=== PATIENT | female | born 1955 | race Caucasian/White ===

== ENCOUNTER → 2019-02-26 | Outpatient (CLI) | payer OTHER ==
[~2019-02-26] MED LIST: ALBU90OI INH; HYDCHL25 PO; LOSA25 PO; METF500C PO; VENLAFAXINE H37.5 MG PO
== END | disposition home or self-care (01) ==
LOC: LAB SHORT 16:30 → LAB 16:30
DX: N39.0 Urinary tract infection, site not specified (principal)
CPT/HCPCS: 87077; 87086; 87186

== ENCOUNTER → 2019-03-21 | Outpatient (CLI) | payer OTHER | END | disposition home or self-care (01) | LOC: PLD 13:30 → LAB SHORT 13:30 | DX: D22.4 Melanocytic nevi of scalp and neck (principal) | CPT/HCPCS: 88305 ==

== ENCOUNTER → 2019-09-26 | Outpatient (CLI) | payer OTHER ==
[2019-09-26 10:36] LABS: Source, Urine Clean Catch
[2019-09-26 10:49] LABS: Bacteria Few /hpf; Red Blood Cells, Urine 0-2 /hpf (0-2); Squamous Epithelial Cells Mod /hpf (Few); Transitional Epithelial Cells Few /hpf (0-Rare)
== END | disposition home or self-care (01) ==
LOC: LAB EV 10:34 → LAB SHORT 10:34
PROVIDERS: Physician Assistant
DX: R94.4 Abnormal results of kidney function studies (principal); R82.79 Other abnormal findings on microbiological examination of urine
CPT/HCPCS: 81015; 87086

== ENCOUNTER → 2019-10-01 | Outpatient (CLI) | payer OTHER | END | disposition home or self-care (01) | LOC: LAB SHORT 16:32 → LAB 16:32 | DX: N39.0 Urinary tract infection, site not specified (principal) | CPT/HCPCS: 87086 ==

== ENCOUNTER → 2019-10-15 | Outpatient (CLI) | payer OTHER | LOC: LAB SHORT 16:24 → LAB EV 16:24 | DX: M79.672 Pain in left foot (principal) | CPT/HCPCS: 84550 ==

== ENCOUNTER → 2020-07-08 | Outpatient (CLI) | payer OTHER ==
[2020-07-10 03:08] LABS: CHLAMYDIA TRACHOMATIS, NAA Negative (Negative); NEISSERIA GONORRHOEAE, NAA Negative (Negative)
== END | disposition home or self-care (01) ==
LOC: LAB 09:44 → LAB SHORT 09:44 → LAB FUT 07-03 08:10
PROVIDERS: Physician Assistant
DX: Z11.3 Encounter for screening for infections with a predominantly sexual mode of transmission (principal)
CPT/HCPCS: 87491; 87591

== ENCOUNTER → 2021-04-17 | Outpatient (CLI) | payer BC, SELFPAY | END | disposition home or self-care (01) | LOC: LAB 12:32 → LAB SHORT 12:32 | DX: N39.0 Urinary tract infection, site not specified (principal) | CPT/HCPCS: 87077; 87086; 87147; 87186 ==

== ENCOUNTER 2021-05-13 09:01 | Emergency (ER) | payer BC, OTHER ==
[~2021-05-13] VITALS: Ht 160 cm; Wt 100.7 kg
== END 2021-05-13 10:27 | disposition home or self-care (01) ==
LOC: ER 09:01
DX: M54.5 Low back pain (principal); G89.29 Other chronic pain; E11.9 Type 2 diabetes mellitus without complications; Z88.5 Allergy status to narcotic agent; Z79.84 Long term (current) use of oral hypoglycemic drugs; Z79.899 Other long term (current) drug therapy
CPT/HCPCS: 99283

== ENCOUNTER → 2022-05-06 | Outpatient (CLI) | payer OTHER | END | disposition home or self-care (01) | LOC: LAB 15:52 → LAB SHORT 15:52 | DX: B37.2 Candidiasis of skin and nail (principal) | CPT/HCPCS: 87070; 87205 ==

== ENCOUNTER 2025-03-03 07:56 | Inpatient (IN) | payer OTHER ==
[~2025-03-03] VITALS: Ht 160 cm; Wt 97.3 kg
[2025-03-03 08:53] LABS: BASOPHILS ABSOLUTE AUTO 0.08 K/mm3 (0.00-0.23); BASOPHILS PERCENT AUTO 1 % (0-2); EOSINOPHILS ABSOLUTE AUTO 0.18 K/mm3 (0.00-0.68); EOSINOPHILS PERCENT AUTO 2 % (0-6); Hematocrit 38.9 % (33.0-51.0); Hemoglobin 13.1 g/dL (11.5-16.0); IMMATURE GRAN ABSOLUTE AUTO 0.02 K/mm3 (0.00-0.10); IMMATURE GRAN PERCENT AUTO 0 % (0-1); LYMPHOCYTES ABSOLUTE AUTO 1.91 K/mm3 (0.84-5.20); LYMPHOCYTES PERCENT AUTO 22 % (21-46); MONOCYTES ABSOLUTE AUTO 0.65 K/mm3 (0.16-1.47); MONOCYTES PERCENT AUTO 7 % (4-13); Mean Corpuscular HGB Conc 33.7 g/dL (31.5-36.5); Mean Corpuscular Volume 95 fL (80-100); Mean Platelet Volume 9.4 fL (9.1-12.4); NEUTROPHILS ABSOLUTE AUTO 5.92 K/mm3 (1.96-9.15); NEUTROPHILS PERCENT AUTO 68 % (41-73); Platelet Count 341 K/mm3 (150-400); RDW Coefficient Variation 12.5 % (11.7-14.2); RDW Standard Deviation 43.7 fL (35.1-46.3); Red Blood Cell Count 4.09 M/mm3 (3.80-5.20); White Blood Cell Count 8.76 K/mm3 (4.00-11.30)
[2025-03-03 09:21] LABS: Albumin, Blood 3.3 g/dL (3.4-5.0); Albumin/Globulin Ratio 0.8 (0.8-1.8); Bilirubin, Total 0.5 mg/dL (0.1-1.0); Bun/Creatinine Ratio 21.5 (12.0-20.0); Calcium, Blood 8.5 mg/dL (8.5-10.1); Creatinine, Blood 0.93 mg/dL (0.40-1.00); Globulin, Blood 4.1 g/dL (2.2-4.0); Potassium, Blood 4.1 mmol/L (3.5-5.5); Total Protein, Blood 7.4 g/dL (6.4-8.2)
[2025-03-03] MEDS ORDERED: VENLAFAXINE HCL75 MG PO (09:33)
[2025-03-03] MEDS ORDERED: LONG ACTING INSULIN (09:34)
[2025-03-03] MEDS ORDERED: GLIMEPIRIDE4 MG PO (09:34)
[2025-03-03] MEDS ORDERED: LOSA50 PO (09:34)
[2025-03-03] MEDS ORDERED: Clopidogrel Bisulfate 75 MG Tab PO ONE ×2 (10:10→10:25)
[2025-03-03] MEDS ORDERED: Aspirin 325 MG Tab PO ONE ×2 (10:10→10:25)
[2025-03-03] MEDS ORDERED: HydrALAZINE HCl 20 MG / ML 1ML Vial IV ONE ×2 (10:25→12:10)
[2025-03-03] MEDS ORDERED: NS 1,000 ML IV SCH ×2 (11:10→19:10)
[2025-03-03] MEDS ORDERED: Aspirin 81 MG Chew PO ONE (11:15)
[2025-03-03 14:09] VITALS: BP 174/73
[2025-03-03] MEDS ORDERED: Ondansetron HCl 2 MG / ML 2ML Vial IV PRN (14:45)
[2025-03-03] MEDS ORDERED: HydrALAZINE HCl 20 MG / ML 1ML Vial IV PRN (14:50)
[2025-03-03 15:40] VITALS: BP 174/78
[2025-03-03 17:27] LABS: Source, Urine Clean Catch
[2025-03-03 17:58] LABS: Appearance, Urine Clear (Clear); Bilirubin, Urine Neg (Neg); Blood, Urine Neg (Neg); Glucose Qualitative, Urine 3+ (Neg); Ketones, Urine Neg (Neg); Leukocyte Esterase, Urine Neg (Neg); Nitrite, Urine Neg (Neg); Protein, Urine 2+ (Neg); Urobilinogen, Urine NORM (Normal); pH, Urine 6.5 (5.0-8.0)
[2025-03-03] MEDS ORDERED: Insulin Human Lispro 100 Units/ML 3ML Syringe SC SCH (18:00)
[2025-03-03 18:20] LABS: Color, Urine Pale Yellow (P-Yellow)
[2025-03-03 18:22] LABS: Bacteria Few /hpf; Red Blood Cells, Urine 0-2 /hpf (0-2); Squamous Epithelial Cells Rare /hpf (Few)
--- NOTE | 2025-03-03 18:31 | NUR ---
SHIFT SUMMARY: PATIENT ADMIT TO PCU 02 THIS AFTERNOON. EMOTIONAL ON ADMIT AND STATING "I JUST WANT TO GO HOME". ABLE TO ANSWER ALL ORIENTING QUESTIONS (NAME, , PLACE, MONTH, YEAR, PRESIDENT) AT TIMES REPETATIVE WITH QUESTIONS AND FORGETFUL. NEEDING REMINDERS OF WHY SHE IS HERE. STAND TO TRANSFER TO BED WITH 2 PERSON ASSIST. UP TO BATHROOM TWICE THIS SHIFT WITH 2 PEOPLE FOR SAFETY. FALL RISK GOWN, SOCKS AND BED ALARM IN PLACE. LEFT SIDE FACIAL DROOP NOTED IN SMILE. LEFT UPPER EXREMITY LIMITED RANGE OF MOTION AND WEAKNESS COMPARED TO RIGHT SIDE. LOSS OF SENSATION TO LEFT UPPER EXTREMITY. PATIENT NOT ABLE TO SEE LEFT VISUAL FIELD. SPEECH CLEAR WITH VERY MINIMAL STUTTER. NPO AT THIS TIME PENDING SPEECH EVAL IN AM. NIH SCORE 7 ON ADMIT. TELE SHOWING SINUS RHYTHM WITH HR 90'S. SBP 170'S. DENIES CHEST PAIN/PRESSURE/PALPITATIONS. NO EDEMA NOTED. SCD'S IN PLACE. SCATTERED BRUISING TO BUE. IV NORMAL SALINE INFUSING PER EMAR. ON ROOM AIR, LUNG SOUNDS CLEAR AND DIM. DENIES SOB/COUGH. EVEN AND UNLABORED RESPIRTATIONS. BOWEL TONES PRESENT IN ALL FOUR QUADRANTS. Q6 BLOOD SUGAR CHECKS. ATTENDS IN PLACE. UP TO BATHROOM TWICE WITH THIS RN AND CHIMNEY SUPERVISOR BRICK. USING HAT TO MEASURE URINE. SMALL SCAB NOTED TO LEFT BUTTOCK AND LEFT TAY, SEE CHART FOR PHOTOS, LEFT OPEN TO AIR. THIS RN PLACED CALL TO HARMEET ARCE, PLAN FOR CLAUDE TO CALL BACK WITH PATIENT MED LIST. CALL LIGHT IN REACH. PATIENT RESTING ON LEFT SIDE AT THIS TIME.
[2025-03-03 20:38] VITALS: BP 167/87
[2025-03-04] VITALS (8 sets, daily range): BP systolic 151–190; BP diastolic 69–106
--- NOTE | 2025-03-04 00:40 | NUR ---
PT REFUSING IV ATTEMPTS, ALLOWED HOUSEKEEPING ROOM INSPECTOR 1X ATTEMPT WITHOUT SUCCESS. BANK NOTE DESIGNER TO ATTEMPT WITH ULTRASOUND.
--- NOTE | 2025-03-04 04:42 | NUR ---
SHIFT SUMMARY NIH 7 THIS SHIFT. PT'S SYSTOLIC WAS 190. DELAY IN TREATING BP DUE PT'S REFUSAL FOR NEW IV. PT'S MOOD IS LABILE, SOMETIMES PARANOID. PT HAD BEADING SWEAT WITHOUT FEVER, AND CBG'S NORMAL. DENIES ETOH USE.
[2025-03-04 05:15] LABS: BASOPHILS ABSOLUTE AUTO 0.06 K/mm3 (0.00-0.23); BASOPHILS PERCENT AUTO 1 % (0-2); EOSINOPHILS PERCENT AUTO 1 % (0-6); Hematocrit 38.9 % (33.0-51.0); Hemoglobin 13.5 g/dL (11.5-16.0); IMMATURE GRAN ABSOLUTE AUTO 0.01 K/mm3 (0.00-0.10); IMMATURE GRAN PERCENT AUTO 0 % (0-1); LYMPHOCYTES ABSOLUTE AUTO 1.74 K/mm3 (0.84-5.20); LYMPHOCYTES PERCENT AUTO 20 % (21-46); MONOCYTES ABSOLUTE AUTO 0.64 K/mm3 (0.16-1.47); MONOCYTES PERCENT AUTO 7 % (4-13); Mean Corpuscular HGB 32.7 pg (26.0-34.0); Mean Corpuscular HGB Conc 34.7 g/dL (31.5-36.5); Mean Corpuscular Volume 94 fL (80-100); Mean Platelet Volume 9.7 fL (9.1-12.4); NEUTROPHILS ABSOLUTE AUTO 6.05 K/mm3 (1.96-9.15); NEUTROPHILS PERCENT AUTO 70 % (41-73); Platelet Count 376 K/mm3 (150-400); RDW Coefficient Variation 12.8 % (11.7-14.2); Red Blood Cell Count 4.13 M/mm3 (3.80-5.20)
[2025-03-04 05:42] LABS: Bun/Creatinine Ratio 17.5 (12.0-20.0); Calcium, Blood 8.9 mg/dL (8.5-10.1); Creatinine, Blood 0.86 mg/dL (0.40-1.00); Potassium, Blood 3.6 mmol/L (3.5-5.5)
--- NOTE | 2025-03-04 08:14 | NUR ---
ASSUMPTION OF CARE: ASSUMED CARE OF PATIENT. AWAKE AND RESTLESS DURING SHIFT CHANGE REPORT. LYING ON BACK AND ROLLING TO RIGHT SIDE IN BED, BACK AND FORTH. REQUESTING DRINKG OF WATER; TOLD WE ARE WAITING FOR ST EVAL D/T DYSPHAGIA. BREATHING EVEN AND UNLABORED. MAINTAINING SPO2 >92% ON RA. TELE SINUS TACH @ 103. NS @ 60mL/hr. OT IMMEDIATELY TO ROOM. BED IN LOWEST POSITION. CALL LIGHT WITHIN REACH. NO ACUTE NEEDS.
[2025-03-04] MEDS ORDERED: Aspirin 81 MG Chew PO SCH (09:00)
[2025-03-04] MEDS ORDERED: Clopidogrel Bisulfate 75 MG Tab PO SCH (09:00)
--- NOTE | 2025-03-04 09:54 | NUR ---
, RIDGE, TO BEDSIDE. PATIENT VERY TEARFUL AND CRYING, STATING SHE WANTS TO GO HOME. THIS RN TO BEDSIDE; LET PATIENT KNOW OF PLAN FOR DAY: NEED FOR ECHO AND TRANSFER TO MEDICAL FLOOR. EXPLAINED PATIENT'S RIGHT TO LEAVE IF SHE WANTS TO AND THAT SHE IS NOT BEING HELD AGAINST HER WILL, BUT THAT DIAGNOSTICS SHOULD BE DONE TO PREVENT FURTHER STROKES AND STROKE-LIKE EPISODES. PT AND FAMILY IN AGREEMENT.
--- NOTE | 2025-03-04 13:58 | NUR ---
CALL TO NOTIFY DR. LOVE THAT PATIENT REPEATEDLY STATING SHE IS WANTING TO GO HOME AND DOESN'T KNOW WHAT SHE IS WAITING FOR. ASKING FOR DR. LOVE, STATING SHE HASN'T SEEN HIM TODAY. DR LOVE ROUNDED ~0900 AND TALKED WITH PATIENT, BUT SHE DOES NOT REMEMBER. PARTICIPATED VERY LITTLE WITH PT/OT TODAY; THEY ARE RECOMMENDING SNF.
[2025-03-04] MEDS ORDERED: Lisinopril 10 MG Tab PO SCH (14:00)
[2025-03-04] MEDS ORDERED: BusPIRone HCl 5 MG Tab PO SCH (14:00)
--- NOTE | 2025-03-04 14:51 | NUR ---
PATIENT HAVING DIFFICULTY FOLLOWING DIRECTION AND MOVING OFTEN DURING VITALS YIELDING INVALID BP OF >200.
[2025-03-04] MEDS ORDERED: VENL75ER PO (15:48)
--- NOTE | 2025-03-04 16:00 | NUR ---
CUSHION MAT MAKER DOCUMENTATION REVIEW: THIS RN HAS PERSONALLY REVIEWED DOCUMENTATION BY STUDENT NURSE. ALL CONTROLLED SUBSTANCES GIVEN BY THIS RN AND OTHER IV PUSHES DIRECTLY OBSERVED BY THIS RN.
--- NOTE | 2025-03-04 17:58 | NUR ---
REVIEW OF PHYSICIAN ER NOTE SHOWS RECOMMENDED MRI OF HEAD. T.O. FOR MRI PLACED.
--- NOTE | 2025-03-04 19:15 | NUR ---
END OF SHIFT SUMMARY: A&Ox3-4. REQUIRES VERBAL CUES AND PROMPTS FOR ADLs; DIFFICULTY FOLLOWING DIRECTION. LUE WEAKNESS, LEFT HAND CONTRACTED. LEFT DEFICIT VISUAL FIELD. CALLS APPROPRIATELY. SPOUSE AT BEDSIDE MUCH OF DAY; PATIENT EMOTIONALLY LABILE AND CRYING TO GO HOME SEVERAL TIMES T/O THE DAY. REMINDED OF TESTING BEING DONE. CONTINENT OF BOWEL AND BLADDER. AMBULATES 1PA c FWW & GB WITH SLIGHT DIFFICULTY c LLE DEXTERITY. SEEN BY SPEECH AND CLEARED FOR PUREE DIET c DYSPHAGIA PRECAUTIONS. NO C/O PAIN. TELE SINUS TACH. DIFFICULTY KEEPING SBP WITHIN GOAL TODAY; PRN HYDRALAZINE ADMINISTERED TWICE. PT RECOMMENDING SNF. BED IN LOWEST POSITION, CALL LIGHT WITHIN REACH, ALL NEEDS MET. REPORT TO ONCOMING NURSE.
[2025-03-04] MEDS ORDERED: Insulin Human Lispro 100 Units/ML 3ML Syringe SC SCH (21:00)
--- NOTE | 2025-03-04 21:48 | NUR ---
UPDATE ASSUMED CARE OF PT AT 1900, PT AWAKE AND ALERT ORIENTED TO PERSON, PLACE AND SITUATION, STATES "I DONT KNOW" WHEN ASKED DATE/TIME AND PRESIDENT, FOLLOWS COMMANDS, NOTED SLURRED SPEECH AT TIMES WITH LEFT SIDE FACIAL DROOP, LEFT ARM FLACCID WITH LEFT HAND CONTRACTURE, LLE WEAK, RIGHT FOREARM PIV PATENT AND CLAMPED, SCHEDULED MED GIVEN PO WHOLE WITH APPLESAUCE, SWALLOWED WITHOUT DIFFICULTY, DENIES C/O PAIN OR NEEDS, SR-ST 90-110s SBP GOAL <180, RESP EVEN AND UNLABORED ON RA, TEMP 99.2F, MRI ORDERED, PT UNABLE TO GIVE ANSWERS TO MRI QUESTIONAIRE, STATES "I DONT KNOW" TO MOST QUESTIONS, CALLED PT SPOUSE RIDGE WITH NO ANSWER AND [id number] GRANDDAUGHTER WITH NO ANSWER TO COMPLETE PAPERWORK. AWAITING RETURN CALL 1 REPORT CALLED TO GENE MATHIAS FOR TRANSFER TO ROOM 347
--- NOTE | 2025-03-04 22:08 | NUR ---
NURSE NOTE THIS NURSE ASSUMES PT CARE. PATIENT DECLINES NEED OF ANYTHING. WANTS TO SLEEP
[2025-03-05] VITALS (9 sets, daily range): BP systolic 151–195; BP diastolic 61–105
--- NOTE | 2025-03-05 05:43 | NUR ---
SHIFT SUMMARY PATIENT IS ALERT AND ORIENTED TO PERSON AND PLACE AND SITUATION. PATIENT HAS HAD NO ACUTE EVENTS THIS SHIFT. VITAL SIGNS REVIEWED. PATIENT IS A RECENT PCU TRANSFER. PATIENT HAS HAD NO COMPLAINTS OF PAIN, NAUSEA, SOB OR VOMITTING. PATIENT HAS HAD HIGH BP THIS SHIFT AND MEDICATED PER EMAR. PATIENT HAS PENDING MRI BUT PATIENT IS A POOR HISTORIAN AND CANNOT ACCURATELY FILL OUT FORM. BED IN LOCKED AND LOWEST POSITION. CALL LIGHT IN PLACE
[2025-03-05] MEDS ORDERED: AmLODIPine Besylate 5 MG Tab PO SCH (09:00)
[2025-03-05] MEDS ORDERED: Metoprolol Succinate 50 MG TABCR PO SCH (14:35)
[2025-03-05] MEDS ORDERED: Losartan Potassium 50 MG Tab PO ONE (18:00)
--- NOTE | 2025-03-05 19:05 | NUR ---
SHIFT SUMMARY PT IS A/OX3, CONFUSION TO DATE/TIME. 2 PERSON ASSIST D/T LEFT SIDED WEAKNESS. DIET ADVANCED TO REGULAR, MEDS WHOLE WITH WATER. BP REMAIN ELEVATED THROUGHOUT THIS SHIFT, PHYSICAN AWARE. AT BEDSIDE THROUGHOUT THIS AFTERNOON.
[2025-03-05] MEDS ORDERED: Atorvastatin 40 MG Tab PO SCH (21:00)
[2025-03-05] MEDS ORDERED: Insulin Glargine-Yfgn 100 Unit/mL 3 ML SYR SC SCH (21:00)
[2025-03-06 01:04] VITALS: BP 164/58
[2025-03-06 03:28] VITALS: BP 179/77
--- NOTE | 2025-03-06 05:12 | NUR ---
SHIFT SUMMARY PATIENT IS ALERT AND ORIENTED X2. PATIENT HAS HAD NO ACUTE EVENTS THIS SHIFT. PATIENT HAS BEEN SLEEPING MOST OF SHIFT. PATIENT HAS BEEN ACCEPTED TO SNF AND [facility] TO GET STRENGTH BACK. PATIENT STILL HAS SIGNIFIGANT LEFT SIDE WEAKNESS. BP ELEVATED THIS SHIFT. PATIENT HAS REPORTED NAUSEA AND MEDICATED PER EMAR. PATIENT HAS HAD NO COMPLAINTS OF PAIN, NAUSEA, SOB OR VOMITTING THIS SHIFT. BED IN LOCKED AND LOWEST POSITION. CALL LIGHT IN PLACE.
[2025-03-06 06:09] LABS: CHOL/HDL RATIO 3.7; Cholesterol 163 mg/dL (50-200); HDL Cholesterol 44 mg/dL (>39); LDL/HDL RATIO 2.1; Low Density Lipoprotein Chol 94 mg/dL (0-110); Triglycerides 126 mg/dL (30-160); Very Low Density Lipoprot Chol 25 mg/dL (6-32)
[2025-03-06 07:19] VITALS: BP 138/92
[2025-03-06] MEDS ORDERED: Enoxaparin 40 MG/0.4 ML SYR SC SCH (09:00)
[2025-03-06] MEDS ORDERED: Losartan Potassium 50 MG Tab PO SCH (09:00)
[2025-03-06 15:26] VITALS: BP 175/69
--- NOTE | 2025-03-06 15:47 | NUR ---
hair pt has a significant posterior hair mat. Offerdf to wash her hair with detangler. she refused. Care ongoing.
[2025-03-06] MEDS ORDERED: AmLODIPine Besylate 5 MG Tab PO SCH (18:00)
--- NOTE | 2025-03-06 18:16 | NUR ---
NOTE PT ALERT TO PERSON, PLACE BUT NOT EVENT, TIME OR PLAN. SHE TRIES TO TALK FAMILY INTO HELPING HER GET OOB. BED/CHAIR ALARM ON. PLAN TO DISCHARGE TO SNF ON [address]. REDIRECTS EASILY. SHE DOES NOT REMEMBER TALKING WITH DR DIOR TODAY OR HER BEING HERE. VSS. TWO ASSIST TO THE CHAIR. SHE SOMETIMES USES THE CALL LIGHT TO REQUEST HELP TO THE COMMODE. SET UP FOR MEALS. SHE SEEMS TO HAVE A VISUAL FIELD CUT ON THE LEFT. DIFFICULT TO ASSESS LOCATION D/T PT SHORT RETENTION. GOOD APPETITE. CARE ONGOING.
[2025-03-06 19:39] VITALS: BP 189/90
[2025-03-06 23:55] VITALS: BP 191/56
[2025-03-07 04:48] VITALS: BP 167/94
[2025-03-07 06:10] LABS: Bun/Creatinine Ratio 29.7 (12.0-20.0); Calcium, Blood 9.4 mg/dL (8.5-10.1); Creatinine, Blood 1.01 mg/dL (0.40-1.00); Potassium, Blood 3.7 mmol/L (3.5-5.5)
--- NOTE | 2025-03-07 06:44 | NUR ---
SHIFT SUMMARY AT START OF SHIFT, PT LYING IN BED SLEEPING. PER REPORT, PT HAD SPONGE BATH TODAY. HAIR IS CLEAN, BUT STILL MATTED IN BACK. PT UP TO [facility] [place] AND NOTED TO BE QUITE WEAK ON HER FEET. PT IS CONFUSED BUT REDIRECTABLE. BED ALARM ON FOR SAFETY. PT BEGAN CALLING OUT IN HER SLEEP. NOTED PT SLEEPING, AND PT SEEMS TO BE DOING WELL THIS AM. PT HAS BEEN PLEASANT AND COOPERATIVE WITH HER CARE.
[2025-03-07 07:26] VITALS: BP 158/72
[2025-03-07] MEDS ORDERED: Insulin Glargine-Yfgn 100 Unit/mL 3 ML SYR SC SCH (10:00)
[2025-03-07 14:33] VITALS: BP 143/70
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
[2025-03-07 19:15] VITALS: BP 189/69
[2025-03-08 01:58] VITALS: BP 183/53
--- NOTE | 2025-03-08 05:31 | NUR ---
SHIFT SUMMARY PT CONTINUES TO HAVE LEFT SIDED DEFICITS- LEFT ARM FLACCID EXCEPT FOR WEAK SHOULDER SHRUG AND LEFT HAND CONTRACTED, LEFT LEG WEAK, SOME LEFT SIDED NEGLECT NOTICED. PT UPSET THAT SHE HAS NOT BEEN ABLE TO GET AHOLD OF HER OR GRANDDAUGHTER. UP TO BSC WITH 1-2 ASSIST. PT IMPULSIVE AND FORGETFUL AT TIMES. PT'S IV PAINFUL- REMOVED AND ORDER FOR OK TO LEAVE IV OUT. BED ALARM ON, BED IN LOWEST POSITION, CALL LIGHT WITHIN REACH, SIDERAILS UP X2.
[2025-03-08 07:53] VITALS: BP 169/75
[2025-03-08] MEDS ORDERED: Amlodipine Bes2.5 MG PO (12:23)
[2025-03-08] MEDS ORDERED: BUSP5 PO (12:24)
[2025-03-08] MEDS ORDERED: ATOR80 PO (12:24)
[2025-03-08] MEDS ORDERED: ASPI81CH PO (12:24)
[2025-03-08] MEDS ORDERED: CLOP75 PO (12:25)
[2025-03-08] MEDS ORDERED: METO50ER PO (12:26)
[2025-03-08] MEDS ORDERED: INSULIN GL300 UNIT/2 SC (12:26)
[2025-03-08] MEDS ORDERED: HYDR10 PO (12:26)
[2025-03-08] MEDS ORDERED: ADMELOG SO100 UNIT/2 SC (12:28)
--- NOTE | 2025-03-08 12:56 | NUR ---
THIS RN CALLED DYLON GERARDO TO GIVE RN TO RN REPORT
== END 2025-03-08 13:22 | DRG 66 ==
LOC: ER 07:56 → ERHOLD 11:30 → MEDS 11:30 → PCU 13:49 → MEDS 03-04 22:02 → ENPENDDIS 03-08 12:50 → MEDS 03-08 13:22
PROVIDERS: Emergency Medicine; Internal Medicine; ADMIT Internal Medicine
DX: I63.89 Other cerebral infarction (principal); I10 Essential (primary) hypertension; E78.5 Hyperlipidemia, unspecified; E11.9 Type 2 diabetes mellitus without complications; F32.A Depression, unspecified; R29.810 Facial weakness; R47.81 Slurred speech; G83.24 Monoplegia of upper limb affecting left nondominant side; Z85.3 Personal history of malignant neoplasm of breast; Q27.8 Other specified congenital malformations of peripheral vascular system; Z88.5 Allergy status to narcotic agent; Z79.84 Long term (current) use of oral hypoglycemic drugs; Z91.81 History of falling
CPT/HCPCS: 36415; 70450; 70496; 70498; 70551; 80048; 80053; 80061; 81001; 82947; 84484; 85025; 92526; 92610; 93005; 93010; 93306; 96374-59; 97110; 97112; 97116; 97162; 97165; 97530; 97535; 99285-25; A9270; J0360; J1650; J1815; J2405; J7030; Q9967

== ENCOUNTER 2025-03-10 20:29 | Emergency (ER) | payer OTHER ==
[~2025-03-10] VITALS: Ht 162.6 cm; Wt 72.6 kg
[~2025-03-10 20:29] MED LIST changes: +ADMELOG SO100 UNIT/2 SC; +ASPI81CH PO; +ATOR80 PO; +Amlodipine Bes2.5 MG PO; +BUSP5 PO; +CLOP75 PO; +GLIMEPIRIDE4 MG PO; +HYDR10 PO; +INSULIN GL300 UNIT/2 SC; +LONG ACTING INSULIN; +LOSA50 PO; +METO50ER PO; +VENL75ER PO; +VENLAFAXINE HCL75 MG PO
[2025-03-10 20:54] VITALS: BP 165/108
[2025-03-10 22:00] LABS: Albumin, Blood 3.6 g/dL (3.4-5.0); Albumin/Globulin Ratio 0.8 (0.8-1.8); Bilirubin, Total 0.6 mg/dL (0.1-1.0); Bun/Creatinine Ratio 31.4 (12.0-20.0); Calcium, Blood 9.4 mg/dL (8.5-10.1); Creatinine, Blood 1.21 mg/dL (0.40-1.00); Globulin, Blood 4.4 g/dL (2.2-4.0); Potassium, Blood 4.1 mmol/L (3.5-5.5)
[2025-03-10 22:17] LABS: BASOPHILS ABSOLUTE AUTO 0.09 K/mm3 (0.00-0.23); BASOPHILS PERCENT AUTO 1 % (0-2); EOSINOPHILS ABSOLUTE AUTO 0.11 K/mm3 (0.00-0.68); EOSINOPHILS PERCENT AUTO 1 % (0-6); Hematocrit 40.2 % (33.0-51.0); IMMATURE GRAN ABSOLUTE AUTO 0.03 K/mm3 (0.00-0.10); IMMATURE GRAN PERCENT AUTO 0 % (0-1); LYMPHOCYTES ABSOLUTE AUTO 2.24 K/mm3 (0.84-5.20); LYMPHOCYTES PERCENT AUTO 19 % (21-46); MONOCYTES ABSOLUTE AUTO 1.07 K/mm3 (0.16-1.47); MONOCYTES PERCENT AUTO 9 % (4-13); Mean Corpuscular HGB 32.3 pg (26.0-34.0); Mean Corpuscular HGB Conc 34.8 g/dL (31.5-36.5); Mean Corpuscular Volume 93 fL (80-100); Mean Platelet Volume 9.8 fL (9.1-12.4); NEUTROPHILS ABSOLUTE AUTO 8.33 K/mm3 (1.96-9.15); NEUTROPHILS PERCENT AUTO 70 % (41-73); Platelet Count 373 K/mm3 (150-400); RDW Coefficient Variation 12.6 % (11.7-14.2); RDW Standard Deviation 42.9 fL (35.1-46.3); Red Blood Cell Count 4.33 M/mm3 (3.80-5.20); White Blood Cell Count 11.87 K/mm3 (4.00-11.30)
[2025-03-10] MEDS ORDERED: Seroquel Xr50 MG PO (22:33)
== END 2025-03-10 23:26 | disposition home or self-care (01) ==
LOC: ER 20:29
PROVIDERS: Emergency Medicine
DX: R45.1 Restlessness and agitation (principal); Z79.899 Other long term (current) drug therapy; Z79.82 Long term (current) use of aspirin; Z79.4 Long term (current) use of insulin
CPT/HCPCS: 80053; 85025; 93005; 93010; 99285-25

== ENCOUNTER 2025-06-26 11:42 | Emergency (ER) | payer OTHER ==
[~2025-06-26] VITALS: Ht 160 cm; Wt 108.9 kg
[~2025-06-26 11:42] MED LIST changes: +Seroquel Xr50 MG PO
[2025-06-26 12:24] VITALS: BP 206/96
[2025-06-26 13:50] LABS: BASOPHILS ABSOLUTE AUTO 0.06 K/mm3 (0.00-0.23); BASOPHILS PERCENT AUTO 1 % (0-2); EOSINOPHILS ABSOLUTE AUTO 0.19 K/mm3 (0.00-0.68); EOSINOPHILS PERCENT AUTO 2 % (0-6); Hematocrit 42.5 % (33.0-51.0); Hemoglobin 15.0 g/dL (11.5-16.0); IMMATURE GRAN ABSOLUTE AUTO 0.02 K/mm3 (0.00-0.10); IMMATURE GRAN PERCENT AUTO 0 % (0-1); LYMPHOCYTES ABSOLUTE AUTO 2.13 K/mm3 (0.84-5.20); LYMPHOCYTES PERCENT AUTO 23 % (21-46); MONOCYTES ABSOLUTE AUTO 0.68 K/mm3 (0.16-1.47); MONOCYTES PERCENT AUTO 7 % (4-13); Mean Corpuscular HGB Conc 35.3 g/dL (31.5-36.5); Mean Corpuscular Volume 95 fL (80-100); NEUTROPHILS ABSOLUTE AUTO 6.18 K/mm3 (1.96-9.15); NEUTROPHILS PERCENT AUTO 67 % (41-73); NRBC ABSOLUTE 0.00 K/mm3 (0.00-0.02); NRBC Auto 0.0 /100 WBC (0.0-0.2); Platelet Count 319 K/mm3 (150-400); RDW Coefficient Variation 11.9 % (11.7-14.2); RDW Standard Deviation 41.6 fL (35.1-46.3)
[2025-06-26 13:58] LABS: Source, Urine Clean Catch
[2025-06-26 14:19] LABS: Alanine Aminotransfer (ALT/SGP 30.0 U/L (12-78); Albumin, Blood 3.9 g/dL (3.4-5.0); Albumin/Globulin Ratio 0.8 (0.8-1.8); Anion Gap 4.0 mmol/L (3-11); Aspartate Aminotrans (AST/SGOT 16.0 U/L (12-37); Bilirubin, Total 0.5 mg/dL (0.1-1.0); Blood Urea Nitrogen 27.0 mg/dL (8-24); CO2, Blood 23.0 mmol/L (21-32); Calcium, Blood 9.7 mg/dL (8.5-10.1); Chloride, Blood 106.0 mmol/L (98-108); Creatinine, Blood 1.06 mg/dL (0.40-1.00); Globulin, Blood 4.6 g/dL (2.2-4.0); Glucose, Blood 338.0 mg/dL (70-99); Potassium, Blood 4.1 mmol/L (3.5-5.5); Sodium, Blood 129.0 mmol/L (136-145); Total Protein, Blood 8.5 g/dL (6.4-8.2)
[2025-06-26 14:29] LABS: Bilirubin, Urine Neg (Neg); Color, Urine Yellow (P-Yellow); Glucose Qualitative, Urine 4+ (Neg); Ketones, Urine Neg (Neg); Leukocyte Esterase, Urine 3+ (Neg); Protein, Urine 2+ (Neg); Specific Gravity, Urine 1.015 (1.003-1.022); Urobilinogen, Urine NORM (Normal)
== END 2025-06-26 14:59 | disposition left against medical advice (07) ==
LOC: ER 11:42
PROVIDERS: Student in an Organized Health Care Education/Training Program
DX: I10 Essential (primary) hypertension (principal); E11.9 Type 2 diabetes mellitus without complications; Z88.5 Allergy status to narcotic agent; Z79.82 Long term (current) use of aspirin; Z79.4 Long term (current) use of insulin; Z79.84 Long term (current) use of oral hypoglycemic drugs; Z79.899 Other long term (current) drug therapy
CPT/HCPCS: 80053; 81001; 85025; 99283

== ENCOUNTER 2025-06-28 07:42 | Inpatient (IN) | payer OTHER ==
[~2025-06-28] VITALS: Ht 160 cm; Wt 70.6 kg
[2025-06-28] VITALS (10 sets, daily range): BP systolic 157–197; BP diastolic 44–133
[2025-06-28 08:36] LABS: BASOPHILS ABSOLUTE AUTO 0.06 K/mm3 (0.00-0.23); BASOPHILS PERCENT AUTO 1 % (0-2); EOSINOPHILS ABSOLUTE AUTO 0.08 K/mm3 (0.00-0.68); EOSINOPHILS PERCENT AUTO 1 % (0-6); Hematocrit 42.1 % (33.0-51.0); Hemoglobin 14.9 g/dL (11.5-16.0); IMMATURE GRAN ABSOLUTE AUTO 0.02 K/mm3 (0.00-0.10); IMMATURE GRAN PERCENT AUTO 0 % (0-1); LYMPHOCYTES ABSOLUTE AUTO 2.04 K/mm3 (0.84-5.20); LYMPHOCYTES PERCENT AUTO 20 % (21-46); MONOCYTES ABSOLUTE AUTO 0.80 K/mm3 (0.16-1.47); MONOCYTES PERCENT AUTO 8 % (4-13); Mean Corpuscular HGB Conc 35.4 g/dL (31.5-36.5); Mean Corpuscular Volume 94 fL (80-100); NEUTROPHILS ABSOLUTE AUTO 7.37 K/mm3 (1.96-9.15); NEUTROPHILS PERCENT AUTO 71 % (41-73); NRBC ABSOLUTE 0.00 K/mm3 (0.00-0.02); NRBC Auto 0.0 /100 WBC (0.0-0.2); Platelet Count 294 K/mm3 (150-400); RDW Coefficient Variation 12.0 % (11.7-14.2); RDW Standard Deviation 41.8 fL (35.1-46.3)
[2025-06-28 08:51] LABS: Prothrombin Time Results 11.2 Sec (9.7-11.5)
[2025-06-28 08:57] LABS: Alanine Aminotransfer (ALT/SGP 29.0 U/L (12-78); Albumin, Blood 3.8 g/dL (3.4-5.0); Albumin/Globulin Ratio 0.9 (0.8-1.8); Anion Gap 9.0 mmol/L (3-11); Aspartate Aminotrans (AST/SGOT 27.0 U/L (12-37); Bilirubin, Total 1.4 mg/dL (0.1-1.0); Blood Urea Nitrogen 27.0 mg/dL (8-24); CO2, Blood 23.0 mmol/L (21-32); Calcium, Blood 9.7 mg/dL (8.5-10.1); Chloride, Blood 105.0 mmol/L (98-108); Creatinine, Blood 1.23 mg/dL (0.40-1.00); Globulin, Blood 4.3 g/dL (2.2-4.0); Glucose, Blood 227.0 mg/dL (70-99); Potassium, Blood 4.1 mmol/L (3.5-5.5); Sodium, Blood 133.0 mmol/L (136-145); Total Protein, Blood 8.1 g/dL (6.4-8.2)
[2025-06-28 10:36] LABS: Source, Urine Clean Catch
[2025-06-28 10:42] LABS: Bilirubin, Urine Neg (Neg); Color, Urine Yellow (P-Yellow); Glucose Qualitative, Urine 4+ (Neg); Ketones, Urine 1+ (Neg); Leukocyte Esterase, Urine 2+ (Neg); Protein, Urine 2+ (Neg); Specific Gravity, Urine 1.020 (1.003-1.022); Urobilinogen, Urine NORM (Normal)
[2025-06-28 10:56] LABS: U Amphetamine Screen Not Detected; U Barbituate Screen Not Detected; U Benzodiazapine Screen Not Detected; U Buprenorphine Screen Not Detected; U Cannabinoids Screen Not Detected; U Cocaine Screen Not Detected; U Methadone Screen Not Detected; U Methamphetamine Screen Not Detected; U Opiates Screen Not Detected; U Oxycodone Screen Not Detected; U Phencyclidine Screen Not Detected
[2025-06-28 11:15] LABS: Ethanol (Alcohol), Blood, Med <3 mg/dL; Thyroid Stimulating Hormone 0.741 uIU/mL (0.360-4.800)
[2025-06-28] MEDS ORDERED: NS 1,000 ML IV SCH (11:50)
[2025-06-28] MEDS ORDERED: Polyethylene Glycol 3350 17 gm PO PRN (11:50)
[2025-06-28] MEDS ORDERED: HydrALAZINE HCl 20 MG / ML 1ML Vial IV PRN (11:50)
[2025-06-28] MEDS ORDERED: Insulin Human Lispro 100 Units/ML 3ML Syringe SC SCH (16:30)
--- NOTE | 2025-06-28 18:06 | NUR ---
PT SUMMARY; PT HAD A SUCCESSFUL DESIREE/CARDIOVERSION FOR THE SHIFT. VITAL HRR REMAINED SR 70'S SINCE CONVERSION, SBP 115-120'S, SATS ABOVE 95% ON RA, AFEBRILE. TOLERATED PO INTAKE. PT HAS BEEN GOING TO THE BATHROOM SBA VIA CANE. NO OTHER ISSUES REPORTED FOR THE SHIFT, FAMILY CAME IN AND WAS UPDATED REGARDING PT STATUS. PT TO STAY ONE MORE NIGHT TO MONITOR. TO DC IN AM IF STABLE. WILL REPORT TO ONCOMING SHIFT
--- NOTE | 2025-06-28 18:14 | NUR ---
PT SUMMARY; AT THE BEDSIDE UPON ARRIVAL TO THE ROOM. PT ALERT AND ORIENTED X2-3 FORGETFUL OF EVENTS/MEMORY PROBLEM. PT HAS LEFT SIDE DEFICIT LEFT FACIAL DROOP AND LEFT HEMIANOPIA. NIHSS AT 16. TENDS TO FALL ASLEEP DURING ASSESSMENT. MD MADE AWARE. VITALS HRR SB 40-50'S, SBP 170-180'S, SATS ABOVE 95% ON RA, AFEBRILE. NS RUNNING AT 50 MLS/HR. PT REFUSED DINNER AND WAS IRRITATED AND UPSET THAT SHE COULDNT GO HOME TODAY, PT WAS EDUCATED ABOUT PLAN OF CARE, SINCE PT COULDNT REMEMBER SOME OTHER THINGS THAT MD AND THERAPIST HAD TOLD HER EARLIER SHE KEEPS ASKING THE SAME QUESTION. ICE CREAM CHEF CAME IN AND TALK TO THE PT. PT NOW BACK TO SLEEP AGAIN. NO OTHER ISSUES AT THIS TIME. WILL REPORT TO ONCOMIGN SHIFT
[2025-06-28] MEDS ORDERED: Triple Antibiotic Ointment 30 gm TOP SCH (21:00)
[2025-06-28] MEDS ORDERED: Docusate Sodium/Senna 1 Tab PO SCH (21:00)
[2025-06-28] MEDS ORDERED: Triple Antibiotic Ointment Pack 0.9 GM TOP SCH (21:00)
[2025-06-29] VITALS (15 sets, daily range): BP systolic 146–221; BP diastolic 48–78
[2025-06-29 03:34] LABS: Hematocrit 42.5 % (33.0-51.0); Hemoglobin 14.7 g/dL (11.5-16.0); Mean Corpuscular HGB Conc 34.6 g/dL (31.5-36.5); Mean Corpuscular Volume 96 fL (80-100); NRBC ABSOLUTE 0.00 K/mm3 (0.00-0.02); NRBC Auto 0.0 /100 WBC (0.0-0.2); Platelet Count 292 K/mm3 (150-400); RDW Coefficient Variation 12.0 % (11.7-14.2); RDW Standard Deviation 42.4 fL (35.1-46.3)
[2025-06-29 03:51] LABS: Albumin, Blood 3.5 g/dL (3.4-5.0); Anion Gap 12 mmol/L (3-11); Blood Urea Nitrogen 28 mg/dL (8-24); CO2, Blood 20 mmol/L (21-32); Calcium, Blood 9.1 mg/dL (8.5-10.1); Chloride, Blood 106 mmol/L (98-108); Creatinine, Blood 1.12 mg/dL (0.40-1.00); Glucose, Blood 118 mg/dL (70-99); Magnesium, Blood 2.1 mg/dL (1.6-2.4); Phosphorus, Blood 3.8 mg/dL (2.5-4.9); Potassium, Blood 4.0 mmol/L (3.5-5.5); Sodium, Blood 134 mmol/L (136-145)
--- NOTE | 2025-06-29 04:42 | NUR ---
SHIFT SUMMARY - SHIFT SUMMARY - A/OX4, KNOWS NAME, PLACE, DATE, AND SITUATION, BUT IS FORGETFUL AND REQUIRES FREQUENT REMINDING AND REDIRECTION. PT REPORTED A MILD HEADACHE, TREATED WITH TYLENOL. PT HAS LEFT SIDED WEAKNESS T/O, LEFT FACIAL DROOP, AND LEFT SIDED HEMIANOPIA. SPEECH IS CLEAR. PT CONTINUES TO EXPRESS HER DESIRE TO LEAVE THE HOSPITAL AND RETURN HOME, PT REEDUCATED ON PLAN OF CARE SEVERAL TIMES. PT IS ON ROOM AIR, SATS ABOVE 95%. BREATH SOUNDS CLEAR, BREATHING IS EQUAL AND UNLABORED. ON CONTINUOUS CARDIAC MONITORING. IN A SINUS RHYTHM, SINUS MARRY AT TIMES, HR 40 S-70 S. PT RECEIVED ONE DOSE OF HYDRALAZINE FOR A SYSTOLIC BP OVER 190. REPOSITIONS SELF IN BED FREQUENTLY, VARIOUS WOUNDS ON BLE. PT STATES FROM FALLS AT HOME. PT AMBULATING WITH FWW, GAIT BELT, AND 2P ASSIST.
--- NOTE | 2025-06-29 10:13 | NUR ---
AM NOTES; PT CALLED FOR HELP TO USE BEDSIDE COMMODE NOTICED WORSENING OF THE LEFT ARM, PER OT'S EVALUATION YESTERDAY PT WAS ABLE TO USE LEFT ARM WHICH IS ALREADY WEAK BUT ABLE TO GRASP WALKER AND WAS ABLE TOTAKE 5 STEPS. THIS TIME PT UNABLE TO MOVE LEFT ARM AND IS DRIFTING TO THE LEFT SIDE UPON STANDING. PT WAS ASSISTED BACK TO BED ANTOHER NIHSS DONE WITH ANOTHER NURSE SCORED AT 13, MADE AWARE. NO NEW ORDERS AT THIS TIME, TO KEEP MONITORING PT. VITALS HRR SR/SB 50-60'S, SBP 160'S, SATS ABOVE 95% ON RA, AFEBRILE. AT THE BEDSIDE ABLE TO PROVIDE LIST OF HOME MEDICATIONS. HOME MEDS RESUMED IN THE EMAR AND WAS GIVEN. PT ABLE TO TOLERATE PO MEDS AND BREAKFAST THIS MORNING. PT EDUCATED USE OF PUREWICK OF THIS TIME FOR SAFETY. PT REMAINED ALERT AND ORIENTED X2-3, FORGETFUL AND ANXIOUS. BEDBATH COMPLETED. BED ALARM ON FOR SAFETY. CALL LIGHTS IN REACH
--- NOTE | 2025-06-29 18:06 | NUR ---
PT SUMMARY; SEE PREVIOUS NOTES. PT ABLE TO WORK WITH PHYSICAL THERAPIST RECOMMENDING SNF. PT BP WAS ELEVATED THIS AFTERNOON, PT ALSO WOKE UP CONFUSED YELLING FOR SOMEONE AND THOUGHT SHE WAS HOME WITH HER , PT WAS REORIENTED BUT PT IS FIXATED ON THE FACT THAT SHE WANTS TO GO HOME, PT WAS RE-EDUCATED PT ABLE TO CALM DOWN, SBP ON THE 210'S, IV HYDRALAZINE 10MG WAS GIVEN WITH NO RESULTS MD CALLED ORDERED ATIVAN PO 0.5 MG TO HELP CALM THE PT, PT HAD DINNER AND FELL ASLEEP SBP NOW DOWN TO 170'S, MANUAL BP WAS TAKEN WELL, AND IS ACCURATE WITH THE MONITOR. PT IS NOW RESTING IN BED, BED ALARM ON FOR SAFETY. WILL REPORT TO ONCOMING SHIFT
[2025-06-30] VITALS (8 sets, daily range): BP systolic 150–224; BP diastolic 50–134
[2025-06-30 04:26] LABS: BASOPHILS ABSOLUTE AUTO 0.05 K/mm3 (0.00-0.23); BASOPHILS PERCENT AUTO 1 % (0-2); EOSINOPHILS ABSOLUTE AUTO 0.06 K/mm3 (0.00-0.68); EOSINOPHILS PERCENT AUTO 1 % (0-6); Hematocrit 42.7 % (33.0-51.0); Hemoglobin 14.7 g/dL (11.5-16.0); IMMATURE GRAN ABSOLUTE AUTO 0.02 K/mm3 (0.00-0.10); IMMATURE GRAN PERCENT AUTO 0 % (0-1); LYMPHOCYTES ABSOLUTE AUTO 1.71 K/mm3 (0.84-5.20); LYMPHOCYTES PERCENT AUTO 16 % (21-46); MONOCYTES ABSOLUTE AUTO 1.05 K/mm3 (0.16-1.47); MONOCYTES PERCENT AUTO 10 % (4-13); Mean Corpuscular HGB Conc 34.4 g/dL (31.5-36.5); Mean Corpuscular Volume 96 fL (80-100); NEUTROPHILS ABSOLUTE AUTO 8.01 K/mm3 (1.96-9.15); NEUTROPHILS PERCENT AUTO 73 % (41-73); NRBC ABSOLUTE 0.00 K/mm3 (0.00-0.02); NRBC Auto 0.0 /100 WBC (0.0-0.2); Platelet Count 306 K/mm3 (150-400); RDW Coefficient Variation 12.1 % (11.7-14.2); RDW Standard Deviation 42.8 fL (35.1-46.3)
[2025-06-30 04:48] LABS: Anion Gap 12.0 mmol/L (3-11); Blood Urea Nitrogen 27.0 mg/dL (8-24); CO2, Blood 20.0 mmol/L (21-32); Calcium, Blood 9.1 mg/dL (8.5-10.1); Chloride, Blood 106.0 mmol/L (98-108); Creatinine, Blood 1.06 mg/dL (0.40-1.00); Glucose, Blood 134.0 mg/dL (70-99); Potassium, Blood 3.9 mmol/L (3.5-5.5); Sodium, Blood 134.0 mmol/L (136-145)
--- NOTE | 2025-06-30 06:38 | NUR ---
NOC SHIFT SUMMARY PT IS A+O X4, PT HAS NOTED L SIDED WEAKNESS. SHE IS A 2-3 PERSON TRANSFER TO THE [facility] [place] W/FWW AND GB. TRANSFERED PT TO [facility] [place] X1 DURING THE SHIFT. SHE VOIDED W/OUT DIFFICULTY. LATER IN THE SHIFT SHE HAD AN INCONT BM. PURImageProtectCK WAS REPLACED AND IS WORKING WELL. PT HAS NOTED REDDNESS ON BILATERAL LEGS FROM FALL AT HOME. BP HAS BEEN ELAVTED, PRN MEDICATION GIVEN PER ORDERS. DENIES CHEST PAIN OR PRESSURE. HR 50-70S DURING SHIFT. BED IN LOWEST POSTION CALL LIGHT IN REACH.
--- NOTE | 2025-06-30 17:28 | NUR ---
SHIFT SUMMARY: PT A&OX4 FOLLOWS COMMANDS AND MAKES NEEDS KNOWN TO STAFF. PT WAS VERY ANXIOUS THIS AFTERNOON AND EVENING ABOUT WANTING TO LEAVE AND GO HOME. STATING THAT SHE WILL COME BACK WHEN WE CAN GET HER INTO REHAB. PT STATES THAT SHE HAS ALOT OF SUPPORT AT HOME, ALTHOGH HER STATES THAT HE CAN NOT CARE FOR HER RIGHT NOW. PT REDIRECTABLE BUT IS VERY PERSISTANT WITH NEEDING TO GET TO REHAB. NO NEW NEURO CHANGES THIS SHIFT. DENIED ANY COMPLAINTS OF CP, PRESSURE, TIGTHNESS OR SOB. VSS. MAP >65. PT WAS CHANGED TO A [facility] SOFT DIET AND NEEDS TO BE SUPERVISED WITH MEALS. NO SIGNIFICANT EVENTS HAPPENED DURING THIS SHIFT. WILL CONTINUE TO CARE FOR PT TILL END OF SHIFT.
[2025-07-01 00:28] VITALS: BP 176/71
[2025-07-01 03:48] LABS: BASOPHILS ABSOLUTE AUTO 0.06 K/mm3 (0.00-0.23); BASOPHILS PERCENT AUTO 1 % (0-2); EOSINOPHILS ABSOLUTE AUTO 0.08 K/mm3 (0.00-0.68); EOSINOPHILS PERCENT AUTO 1 % (0-6); Hematocrit 40.7 % (33.0-51.0); Hemoglobin 13.9 g/dL (11.5-16.0); IMMATURE GRAN ABSOLUTE AUTO 0.02 K/mm3 (0.00-0.10); IMMATURE GRAN PERCENT AUTO 0 % (0-1); LYMPHOCYTES ABSOLUTE AUTO 1.73 K/mm3 (0.84-5.20); LYMPHOCYTES PERCENT AUTO 17 % (21-46); MONOCYTES ABSOLUTE AUTO 1.14 K/mm3 (0.16-1.47); MONOCYTES PERCENT AUTO 11 % (4-13); Mean Corpuscular HGB Conc 34.2 g/dL (31.5-36.5); Mean Corpuscular Volume 95 fL (80-100); NEUTROPHILS ABSOLUTE AUTO 7.04 K/mm3 (1.96-9.15); NEUTROPHILS PERCENT AUTO 70 % (41-73); NRBC ABSOLUTE 0.00 K/mm3 (0.00-0.02); NRBC Auto 0.0 /100 WBC (0.0-0.2); Platelet Count 277 K/mm3 (150-400); RDW Coefficient Variation 12.0 % (11.7-14.2); RDW Standard Deviation 42.1 fL (35.1-46.3)
[2025-07-01 04:07] LABS: Anion Gap 11.0 mmol/L (3-11); Blood Urea Nitrogen 32.0 mg/dL (8-24); CO2, Blood 20.0 mmol/L (21-32); Calcium, Blood 9.1 mg/dL (8.5-10.1); Chloride, Blood 107.0 mmol/L (98-108); Creatinine, Blood 1.25 mg/dL (0.40-1.00); Glucose, Blood 157.0 mg/dL (70-99); Potassium, Blood 3.9 mmol/L (3.5-5.5); Sodium, Blood 134.0 mmol/L (136-145)
--- NOTE | 2025-07-01 05:22 | NUR ---
NOC SHIFT SUMMARY PT IS A+O X4 ABLE TO MAKE NEEDS KNOWN, SHE IS HOWEVER BECOMING INCREASINGLY UPSET WITH STILL BEING IN THE HOSPITAL AND NOT AT HOME OR IN A REHAB. SHE DENIED ALLOWING THIS RN TO DO A 0000 BP. SHE WILL FOLLOW COMMANDS WHEN SHE WANTS TO AND IS STARTING TO DENY CERTAIN COMMANDS AND TASKS. PT IS A 2-3 PERSON TRANSFER TO THE [facility] [place] W/ FWW AND GB. PATIENT TRANSFERED X3 BEFORE ALLOWING A PURWICK TO BE PLACED FOR THE REST OF THE SHIFT. BM X2. DENIES CHEST PAIN OR PRESSURE. RA SATTING 95% AND ABOVE ON SPO2 CHECKS, DENIES SOB. L SIDE DEFICTS REMAIN, NO NEW NEURO CHANGES NOTED. BED ALARM ON FOR SAFETY, BED IN LOW, CALL LIGHT IN REACH. CARE CONTINUES, WILL REPORT TO ONCOMING RN.
[2025-07-01 08:47] VITALS: BP 147/61
[2025-07-01 11:45] VITALS: BP 146/54
[2025-07-01 14:45] VITALS: BP 152/61
--- NOTE | 2025-07-01 18:33 | NUR ---
SHIFT SUMMARY PATIENT IS ALERT AND ORIENTED X4, ABLE TO FOLLOW COMMANDS AND MAKE NEEDS KNOWN. LEFT SIDED DEFICITS NOTED, SEE NIHSS FOR FURTHER DETAILS. VSS, SPO2 >90% ON RA. PATIENT DENIES CHEST PAIN OR SHORTNESS OF BREATH. PATIENT DENIES NAUSEA OR ABDOMINAL PAIN, PATIENT HAD INCONTINENT STOOLS THIS SHIFT. ST/PT/OT EVALUATIONS DONE TODAY, SEE CHART FOR RECOMMENDATIONS. PATIENT IS A 2-3 PERSON ASSIST WITH A FWW TO BSC. BED IN LOWEST POSITION, CALL LIGHT WITHIN REACH.
[2025-07-01 19:51] VITALS: BP 155/85
[2025-07-02 03:14] VITALS: BP 155/63
--- NOTE | 2025-07-02 06:52 | NUR ---
SHIFT SUMMARY: PT A&OX4 CALM AND COOPERATIVE. OCCASIONAL FORGETFULNESS. NOTABLE LEFT SIDED DEFICITS AND LEFT SIDED VISUAL CUT. NIH SCORE OF 14. Q4 NEURO CHECKS. HTN. SBP 150S. MAINTAINING >92% ON RA. DENIES CHEST PAIN/PRESSURE AND SOB. TOLERATING MINCED AND MOIST DIET. 2 PERSON ASSIST WITH GAIT BELT TO BSC. PLAN IS FOR POSSIBLE [facility]CHARGE TO [facility] TODAY. CONTINUE WITH CURRENT PLAN OF CARE. BED IS LOW AND LOCKED. CALL LIGHT WITHIN REACH. BED ALARM ON.
[2025-07-02 07:43] VITALS: BP 149/77
[2025-07-02 11:25] VITALS: BP 155/70
[2025-07-02 15:56] VITALS: BP 132/62
--- NOTE | 2025-07-02 17:23 | NUR ---
PT IS A&Ox4 AND ABLE TO MAKE NEEDS KNOWN, BUT SHE IS FORGETFUL. SHE IS ON RA W/O2 SATS > 92%. SHE IS NOW A LIFT FOR OOB D/T INCREASED WEAKNESS TO L LEG. SHE REQUIRES FEEDING ASSISTANCE TO CUE HER TO EAT AND NOT POCKET FOOD. PUREWICK IN PLACE D/T INCREASED WEAKNESS. NO OTHER NEEDS OR CONCERNS NOTED @ THIS TIME. BED IN LOW POSITION, BED ALARM ON, CALL LIGHT AND PERSONAL BELONGINGS IN REACH.
[2025-07-02 19:58] VITALS: BP 177/63
[2025-07-03] VITALS (7 sets, daily range): BP systolic 133–190; BP diastolic 54–88
--- NOTE | 2025-07-03 04:01 | NUR ---
PATIENT REFUSED TO WAKE UP FOR THE STROKE SCALE ASSESSMENT UPON ARRIVAL.
--- NOTE | 2025-07-03 06:39 | NUR ---
PT CAME FROM THE U AROUND 3AM OR SO. HAS BEEN SLEEPING WELL SINCE THEN. NO ACUTE ISSUES.
--- NOTE | 2025-07-03 06:53 | NUR ---
SHIFT SUMMARY: PT A&OX 3-4 CALM AND COOPERATIVE. FREQUENTLY FORGETFUL. NOTABLE LEFT SIDED DEFICITS AND LEFT SIDED VISUAL CUT. NIH SCORE OF 14. Q4 NEURO CHECKS. HTN. SBP 150S-190S. GAVE PRN HYDRALIZINE X1. MAINTAINING >92% ON RA. TOLERATING MINCED AND MOIST DIET. BEDREST AND LIFT FOR OOB ACTIVITIES. WICKING SYSTEM IN PLACE. TRANSFERRED TO MEDICAL FLOOR. REPORT GIVEN TO HANDOFF NURSE.
--- NOTE | 2025-07-03 19:30 | NUR ---
End of shift summary: Patient is alert to self; confused and impulsive behavior and currently with [place] Vest in place for safety d/t attempting to get up OOB. Patient with no signs/symptoms of discomfort or distress and none voiced. All medications administered per EMAR. Patient family notified of need for restraint. Pure wick in place with jayesh urine output noted. Patient incontinent and with attends in place. Bed in lowest position, call light within reach, and alarm in place for safety. Report given to shift production supervisor nurse.
--- NOTE | 2025-07-04 02:54 | NUR ---
PER PRIMARY RN, RESTRAINTS UNTIED AT THIS TIME. BED ALARM IS ON AND CALL LIGHT IS WITHIN PT REACH.
--- NOTE | 2025-07-04 06:35 | NUR ---
Shift Summary At the start of shift, pt was oriented to self only. Was restless and adamant about getting oob. [place] in place for safety, confusion, and impulsive making it difficult to redirect. Patient pulled pure wick, currently in a brief. Repositioned q2h as needed for comfort. Toward end of shift, pt is oriented to place, month/year, and self. Patient is forgetful as evidence by not remembering why she was admitted despite having just discussed it with this RN. Pleasantly confused. Currently sleeping. IV patent and covered. Restraint has been discontinued. Call light in reach. Bed in lowest position. Bed alarm turned on.
[2025-07-04 07:24] VITALS: BP 155/51
[2025-07-04 15:15] VITALS: BP 132/62
--- NOTE | 2025-07-04 19:10 | NUR ---
Patient is alert and oriented x2-3; bouts of confusion and impulsive behavior; pleasant and cooperative with care. Patient with no complaint of SOB, CP, N/V/D or pain this shift and has appeared comfortable today. All medications administered per EMAR. Patient with no acute changes this shift. Bed in lowest position, bed alarm in place, and call light within reach. Report has been given to night coordinator nurse.
[2025-07-04 19:30] VITALS: BP 169/91
[2025-07-04] MEDS ORDERED: Insulin Glargine,Hum.Rec.Anlog 100 UNIT/ML 3MLSYR SC SCH (21:00)
[2025-07-05 07:33] VITALS: BP 146/65
--- NOTE | 2025-07-05 07:42 | NUR ---
Shift Summary - T.O. for vest restraint Mentation unchanged from the night prior beginning with confusion around shift change and ending with patient being AOx3 and redirectable. [place]/Vest restraint ordered by telephone from [facility] Michelle CRAWLER CRANE OPERATOR d/t patient being impulsive, confused, wanting OOB to bathroom but forgetting that she is significantly weak on her left side due to the stroke she just had, and making threats/using foul language toward staff. Patient had bm in brief; however, started touching her poop and had it all over her gown/beddings/under nails, etc... pretty much everywhere patient touched. Complete linen changed x 2, bowel meds held this shift. Restraints were discontinued at 0353 as mentation cleared and patient became more oriented aeb redirectable and maintaining safety in bed. Slept on/off, bed in lowest position, call light within reach.
[2025-07-05 14:34] VITALS: BP 143/50
--- NOTE | 2025-07-05 18:17 | NUR ---
SHIFT SUMMARY PT CONT LEVEL OF CARE WITH NO ACUTE CHANGES NOTED. PT CONT TO BE A&O 2-3 WITH CONFUSION/FORGETFULLNESS NOTED. PT HAS HAD TO BE REDIRECTED AND REEDUCATED THROUGHOUT THIS SHIFT. PT CONT TO NEED ASSISTANCE WITH MEALS AND EDUCATED ON SMALL BITES AND SIPS.
[2025-07-05 19:53] VITALS: BP 146/58
[2025-07-06 04:28] VITALS: BP 164/72
--- NOTE | 2025-07-06 06:30 | NUR ---
SHIFT SUMMARY: Pt is admitted for right side CVA and is a full code. Is alert to self and sometimes and sometimes place. ADLs have been mostly one. Denies pain or discomfort when asked. Iv to left wrist is patent with dressing that is CDI. has been restless and mildly agitated through out shift. This LN and 3 other nurses attempted to PO ativan for agitation to which she declined. Spoke with provider who ordered a 1 time dose of zyprexa IM for the agitation that was somewhat effective. She was noted with most of the shift attempting to get out of bed and for the most part was redirectable. She wanted family called attempted a couple of times to contact and granddaughter but were unable to leave VM. this upset PT to the point that she would call out her granddaughters name every so often stating that she was in the other room. LN had opened bathroom door to show that no one was there. And gave reassurance that she was not in the hospital. She also became hyper focused on wanted to know why she was here. When explained what the DX was she would then state then she should go to the hospital. And it was reinforced that she was in the hospital. And she would exit the circular questioning. Until Ln was called to a different room. PT was also very instant on getting out of bed and walking to the bathroom. PT has little to no control of left side. This has been reinforced and reminded that she not safe to walk to the bathroom and is a LIFT PT. [employer] system put in place as well as offered bed soto.
[2025-07-06 07:24] VITALS: BP 188/59
--- NOTE | 2025-07-06 11:59 | NUR ---
PT TRANSFERED TO ROOM 352. REPORT WAS GIVEN PRIOR TO TRANSFER. PT HAS BEEN AOX1-2 WITH CONFUSION. PT NEEDS CONSTANT REORIENTATION TO HAVING NOT USE OF L SIDE PT BELIEVES SHE CAN WALK AND IS VERY IMPULSIVE SETTING OFF ALARM FREQUENTLY. PT STARTED SHIFT UPSET, BUT WHEN TALKED TO AND REDIRECTED BECAME PLEASANT AND COOPERATIVE. PT STATES SHE IS FEELING FRUSTRATED. PT WAS TREATED FOR ANXIETY PER EMAR. ALL BELONGINGS MOVED TO NEW ROOM WITH PT. CALL LIGHT IN REACH AND BED ALARM IN PLACE.
[2025-07-06 15:32] VITALS: BP 186/81
[2025-07-06 19:25] VITALS: BP 155/112
--- NOTE | 2025-07-07 00:25 | NUR ---
PATIENT CONFUSED SAYING SHE IS GOING SHOPPING TO [employer] AND [employer] AND IF WE NEED ANYTHING. SWINGING LEGS OVER THE RAILS AND HALUCINATING AT TIMES. PATIENT CHANGED AND REPOSITIONED BUT STILL SWUNG LEGS OVER RAIL AND THROWING PILLOWS OFF BED. BED ALARM. ISHA.
[2025-07-07 02:57] VITALS: BP 132/70
--- NOTE | 2025-07-07 04:44 | NUR ---
SHIFT SUMMARY PATIENT AXOX 2 WITH CONFUSION T/O SHIFT AND TRYING TO GET OUT OF BED. DENIES CHEST PAIN, SOB, AND N/V. PIV INTACT. LEFT SIDE WEAKNESS. HALLUCINATING CALLING OUT. PULLING COVERS OFF AND THROWING PILLOWS OFF BED. SLEPT MORE THE SECOND HALF OF SHIFT. CALL LIGHT IN REACH. BED IN LOWEST POSITION AND ALARM ON. WILL CONTINUE TO MONITOR UNTIL DAY SHIFT NURSE ASSUMES CARE.
[2025-07-07 08:22] VITALS: BP 144/71
[2025-07-07 16:22] VITALS: BP 90/49
[2025-07-07 19:41] VITALS: BP 133/62
[2025-07-08 04:11] VITALS: BP 103/57
--- NOTE | 2025-07-08 04:28 | NUR ---
SHIFT SUMMARY PATIENT HAD NO ACUTE CHANGES. AXOX 2 AND BEDREST. DENIES CHEST PAIN, SOB, AND N/V. VSS/AFEBRILE. NO IV ACCESS. CBG 171. SLEPT MOST OF THE SHIFT. CALL LIGHT IN REACH. BED IN LOWEST POSITION. WILL CONTINUE TO MONITOR UNTIL DAY SHIFT NURSE ASSUMES CARE.
[2025-07-08 07:39] VITALS: BP 101/58
[2025-07-08 15:34] VITALS: BP 98/74
--- NOTE | 2025-07-08 19:19 | NUR ---
SHIFT SUMMARY PT IS A/OX2. BEDREST AT THIS TIME. NO ACUTE CHANGES THROUGHOUT THIS SHIFT. PT SLEEPING FOR MUCH OF THIS SHIFT. INCONT OF BOWEL AND BLADDER, ATTENDS IN PLACE AND CHANGED NEEDED. MEDS TAKEN WHOLE WITH WATER ONE AT A TIME. PT IS PLEASANT AND COOPERATIVE WITH CARE.
[2025-07-08 19:52] VITALS: BP 151/57
[2025-07-09 03:24] VITALS: BP 127/54
--- NOTE | 2025-07-09 05:32 | NUR ---
NO ACUTE CHANGES, PATIENT CONTINUES TO MUMBLE NONOSENSICAL, PATIENT CONTINUED TO HAVE VISUAL AND AUDITORY HALLUCINATIONS REACHING IN THE AIR GRABBING NOTHING. IMPULSIVE TO WANT OUT OF BED, BED ALARM ON, 2 PERSON ASSIST FOR ANDREW CARE AND REPOSITIONING IN BED. PATIENT EASILY CONFUSED, UNABLE TO FOCUS ON TASK AT HAND, PATIENT SHOWS SIGNS OF SYMPTOMS OF DISCOMFORT BUT NOT FULLY ABLE TO LET NEEDS KNOWN, REPOSITIONED AND ATTENDS CHANGED X4 THIS PM SHIFT, INCONTONIENT, CALL LIGHT WITH IN REACH, WILL RELAY TO PM RN
[2025-07-09 07:32] VITALS: BP 149/57
[2025-07-09 15:29] VITALS: BP 134/73
--- NOTE | 2025-07-09 18:36 | NUR ---
SHIFT SUMMARY PT IS A/OX2. PT SLEEPING FOR MUCH OF THE MORNING. THIS AFTERNOON, PT BECAME MORE ANXIOUS, PULLING AT HER ATTENDS, PUTTING HER LEGS OUT OF THE BED, TAKEN OFF HER GOWN, GIVEN PRN ATIVAN PER JAN. PT WORKED WITH PT/OT. FAMILY AT BEDSIDE THIS AFTERNOON. AWAITING SNF PLACEMENT.
[2025-07-09 19:59] VITALS: BP 135/77
--- NOTE | 2025-07-10 05:17 | NUR ---
SHIFT SUMMARY: PT IS AOX2. PT IS A 1-2 PERSON AST TO CHANGE AND IS INCONT. PT IS ADMITED FOR STROKE AND HAS LEFT SIDED WEAKNESS. PT IMPULSIVE AND TRYING TO GET OUT OF BED. BED ALARM IS SET.
[2025-07-10 06:01] VITALS: BP 142/63
[2025-07-10 09:20] VITALS: BP 131/75
--- NOTE | 2025-07-10 11:04 | NUR ---
NOTE PT IS RESTING QUIETLY WITH SPOUCE AT BEDSIDE. CLOTHED. BED LOW LOCKED, BED ALARM ON AND CALL LIGHT WITH IN REACH ON THE RIGHT SIDE. CARE ONGOING.
[2025-07-10 15:03] VITALS: BP 134/79
--- NOTE | 2025-07-10 16:48 | NUR ---
ATTEMPTED TO REACH [facility] VIA T/C THIS EVENING TO DISCUSS PLAN OF CARE. HIS PHONE WENT STRAIGHT TO [facility] WHICH IS NO CURRENTLY SET UP. ACCORDING TO BEDSIDE RN, COMES IN DAILY EACH MORNING. PLAN TO SEE PT AND IN THE MORNING.
[2025-07-10 20:58] VITALS: BP 155/60
[2025-07-11 03:36] VITALS: BP 162/73
--- NOTE | 2025-07-11 05:18 | NUR ---
SHIFT SUMMARY PATIENT IS ALERT AND ORIENTED X2. PATIENT HAS HAD NO ACUTE EVENTS THIS SHIFT. VITAL SIGNS REVIEWED. PATIENT HAS BEEN ATTEMPTING TO GET OUT OF BED MULTIPLE TIMES THIS SHIFT, PATIENT EASILY REDIRECTABLE. PATIENT HAS NO COMPLAINTS OF PAIN, NAUSEA, VOMITTING OR SOB THIS SHIFT. BED IN LOCKED AND LOWEST POSITION. CALL LIGHT IN PLACE.
[2025-07-11 07:21] VITALS: BP 148/80
[2025-07-11 16:04] VITALS: BP 130/68
--- NOTE | 2025-07-11 17:57 | NUR ---
NOTE PT ALERT. FREQUENTLY WANTING TO WALK AROUND AND GO OUTSIDE. MULTIPLE ATTEMPTS TO CLIMB OVER THE RAILS. REDIRECTS SOMETIMES. USED BED SUCCESSFULLY X1. ABLE TO ROLE WITH MINIMAL ASSIST. REFUSED BREAKFAST. POSSIBLE DISCHARGE TO SNF TOMORROW. VSS. NO IV. CARE ONGOING.
[2025-07-11 20:42] VITALS: BP 155/55
[2025-07-12 05:58] VITALS: BP 130/66
--- NOTE | 2025-07-12 06:32 | NUR ---
SHIFT SUMMARY PT SLEPT INTERMITTENTLY DURING THE NIGHT. LEFT ARM REMAINS FLACCID AND LEFT LEG REMAINS SIGNIFICANTLY WEAK. PT ORIENTED TO PERSON ONLY, COOPERATIVE WITH CARE. INCONT OF URINE- CLEANED AND CHANGED NEEDED. PT ABLE TO TAKE MEDICATIONS, BUT DECLINED ANY FURTHER FOOD/ FLUID.
[2025-07-12 07:29] VITALS: BP 140/77
[2025-07-12] MEDS ORDERED: MELATONIN1 M1 PO (11:21)
[2025-07-12] MEDS ORDERED: AMLO5 PO (11:21)
[2025-07-12] MEDS ORDERED: BASAGLAR K100 UNIT/1 SC (11:21)
[2025-07-12] MEDS ORDERED: SENN187 PO (11:22)
[2025-07-12] MEDS ORDERED: Seroquel Xr50 MG PO (11:22)
[2025-07-12] MEDS ORDERED: QUET25 PO (11:22)
[2025-07-12] MEDS ORDERED: MIRALAX17 GM PO (11:22)
[2025-07-12 14:54] VITALS: BP 138/69
--- NOTE | 2025-07-12 16:57 | NUR ---
DISCHARGE NOTE PT D/C TO [facility] AT 1635. PT A&OX3, VSS, BEDRIDDEN, TOLERATING PO, VOIDING, AND PAIN MANAGED PER EMAR. BELONGINGS WERE RETURNED. DISCHARGE PACKET GIVEN TO TRANSPORT. THIS RN CALLED [facility] TO GIVE REPORT, NO ANSWER. PT'S NOTIFIED.
== END 2025-07-12 16:30 | DRG 65 ==
LOC: ER 07:42 → PCU 11:46 → MEDS 11:46 → PCU 13:57 → MEDS 07-03 03:47 → ENPENDDIS 07-12 11:18 → MEDS 07-12 16:30
PROVIDERS: Hospitalist; Physician Assistant; ADMIT Internal Medicine
DX: I63.511 Cerebral infarction due to unspecified occlusion or stenosis of right middle cerebral artery (principal); E87.1 Hypo-osmolality and hyponatremia; G81.94 Hemiplegia, unspecified affecting left nondominant side; R29.810 Facial weakness; R00.1 Bradycardia, unspecified; F41.9 Anxiety disorder, unspecified; I16.0 Hypertensive urgency; E11.22 Type 2 diabetes mellitus with diabetic chronic kidney disease; N18.9 Chronic kidney disease, unspecified; I12.9 Hypertensive chronic kidney disease with stage 1 through stage 4 chronic kidney disease, or unspecified chronic kidney disease; R45.1 Restlessness and agitation; E78.5 Hyperlipidemia, unspecified; Z79.899 Other long term (current) drug therapy
CPT/HCPCS: 36415; 51701; 70450; 80048; 80053; 80069; 80320; 81001; 82140; 82947; 83735; 84443; 85025; 85027; 85610; 85730; 87086; 92526; 92610; 93005; 93010; 97110; 97112; 97161; 97166; 97530; 97535; 99285-25; A9270; J0360; J7030